=== PATIENT | male | born 1970 | race Caucasian/White ===

== ENCOUNTER 2025-03-08 11:04 | Emergency (ER) | payer OTHER, SELFPAY ==
[2025-03-08] VITALS (7 sets, daily range): BP systolic 130–137; BP diastolic 82–93; PULSE 74–98; RESP 15–18; TEMP 36.6; O2SAT 95–100; BMI 39.3
--- OUTSIDE RECORDS SUMMARY | 2025-03-08 11:06 | XMS_ITS | Clinical Summary ---
Author Organization [facility] Address [address] [place] [id number] Care Team Providers Care Channel Cementer Name Role Phone Erin Vanesa Simon MD Primary Care Provider [phone] Allergies Active Allergy Reactions Criticality Noted Date Comments Unlisted Allergen (Include Detail In Comments) Itching 09/11/2018 Tide laundry soap Medications albuterol HFA (PRO-AIR; VENTOLIN; PROVENTIL) 90 mcg/actuation inhalerIndications :COPD mixed type (HC) Inhale 2 Puffs by mouth every 4 hours if needed for Shortness Of Breath. 1 Each 11 4 Active amoxicillin 500 mg capsuleIndications :History of total left knee replacement take four pills one hour prior to dental work 4 Capsule 5 Active mirtazapine 7.5 mg tabletIndications: Major depressive disorder, recurrent, moderate (HC),Insomnia due to mental condition Take 1 Tablet (7.5 mg) by mouth at bedtime. if needed for sleep 90 Tablet 3 5 Active amLODIPine 5 mg tabletIndications: Essential hypertension Take 1 Tablet (5 mg) by mouth once daily. 90 Tablet 3 5 Active atorvastatin 40 mg tabletIndications: Hyperlipidemia, unspecified hyperlipidemia type Take 1 Tablet (40 mg) by mouth once daily. 90 Tablet 3 5 Active FLUoxetine 40 mg capsuleIndications :Major depressive disorder, recurrent, moderate (HC) Take 1 Capsule (40 mg) by mouth once daily. 90 Capsule 3 5 Active losartan 100 mg tabletIndications: Essential hypertension Take 1 Tablet (100 mg) by mouth once daily. 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/2021 Mixed hyperlipidemia 11/22/2020 Essential hypertension 11/22/2020 Gonarthrosis 09/11/2018 Chest tightness or pressure 01/02/2016 Obstructive sleep apnea 10/26/2015 Major depressive disorder, recurrent, moderate Encounters Date Type Department Care Team Description 03/01/2025 2:30 PM CDT Office Visit [facility] [place] [address] [place] [address] Bradley Anderson MD Sleep Consult 03/01/2025 Orders Only [facility] Scanner 1 scan: (1-Ord) JODI, COMPLIANCE REPORT, 03/01/2025 03/01/2025 Travel 12/22/2024 9:30 AM CDT Office Visit [facility] [address] [place] [phone] Suman Walsh-Brandon Harris MD Nose Problem (Snoring) 12/22/2024 Travel from Last 3 Months Immunizations Immunization Administration Dates Next Due COVID-19 vaccine (Thea-J& J) ANAT DELEON 02/17/2021 Hep B (Hepatitis B (Adult) Recombinant Adjuvanted) 03/15/2024 INFLUENZA, IIV3 PF (AGE >= 6 MO) 06/03/2024 Influenza A (H1N1), Inactiva joellen (Age >=3 Years) 07/22/2009 Influenza, IIV3 (Age 6-35 mos) 4,06/08/2013,06/11/2012,2010,06/27/2010 Influenza, IIV3 (Age >=3 years) 07/08/2009 Influenza, IIV4 06/05/2023,04/16/2020,06/17/2015 Influenza, IIV4 (=>6mos) MDV 06/10/2019,06/11/20 18,06/12/2017 Influenza, Injectable, Mdck, Quadrivalent, W/preservative 06/06/2022 Influenza,CCIIV4 PRESERV FREE 05/05/2021 Pneumococcal Conj 20-valent (Prevnar 20) 11/17/2024 Pneumococcal conj 13-Valent (Prevnar 13) 08/01/2016 Td (Age >=7 Years) 08/09/2021 Tdap 10/27/2010 Zoster (Shingrix-RZV, recombinant) 05/17/2021, Family History Medical History Relation Name Comments Diabetes Brother COPD Father Depression Mother Diabetes Mother Heart failure Mother Hypertension Mother Thyroid Disease Mother Relation Name Status Comments Brother Father Mother Social History Tobacco Use Types Packs/Day Years Used Date Smoking Tobacco: Former Cigarettes 2 25 0 10/26/1978 - 10/26/2003 Smokeless Tobacco: Former Quit: 10/26/2003 Tobacco Cessation:Counseling Given: Yes Alcohol Use Standard Drinks/Week Comments Not Currently 0 (1 standard drink = 0.6 oz pure alcohol) 10 times a year 5 or 6 beers at a time PHQ-2 Answer Date Recorded PHQ-2 TOTAL SCORE 0 11/17/2024 Social Connections Answer Date Recorded Do you often feel lonely or isolated from those around you? 0 11/17/2024 Alcohol Use Answer Date Recorded How often do you have a drink containing alcohol ? 1 09/22/2021 How many drinks containing a lcohol do you have on a typical day when you are drinking? 2 09/22/2021 How often do you have five or more drinks on one occasion? 1 09/22/2021 Financial Resource Strain Answer Date R ecorded Difficulty of Paying Living Expenses 3 11/17/2024 Difficulty of Paying Living Expenses Not on file 11/17/2024 Food Insecurity Answer Date Recorded Do you worry your food will run out before you are able to buy more? 1 11/17/2024 Transportation Needs Answer Date Record ed Does lack of transportation keep you from medica l appointments? 1 11/17/2024 Does lack of transportation keep you from work, meetings or getting things that you need? 1 11/17/2024 Housing Stability Answer Date Recorded What is your housing situation today? 1 11/17/2024 Utilities Answer Date Recorded Do you have trouble paying f or utilities (for example, heat, electricity, water, phone)? 1 11/17/2024 Education Answer Date Recorded What is the highest level of school you have completed or the highest degree you have received? 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 Not on file Not on file Obstetrics History Last Filed Vital Signs Vital Sign Reading Time Taken Comments Blood Pressure 117/77 03/01/2025 2:28 PM CDT Pulse 71 03/01/2025 2:28 PM CDT Temperature - - Respiratory Rate 14 11/14/2021 12:5 6 PM CDT Oxygen Saturation 100% 03/01/2025 2:28 PM CDT Inhaled Oxygen Concentration - - Weight 100.1 kg (220 lb 9.6 oz) 03/01/2025 2:28 PM CDT Height 164.5 cm (5' 4.75) 03/01/2025 2:28 PM CD T Body Mass Index 36.99 03/01/2025 2:28 PM CDT Plan of Treatment Upcoming Encounters Date Type Department Care Team (Late st Contact Info) Description 04/02/2025 3:00 PM CDT Office Visit [facility] [address] [place] [phone] Carlton Gutierrez MD [address] [place] [address] Health Maintenance Due Date Last Done Comments Hepatitis B series for 19+ ( 2 of 2 - CpG 2-dose series) 04/12/2024 03/15/2024 Influenza Vaccine (#1) 2025 4, 06/05/2023, 06/06/2022, Additional history exists Depression screening for age 12+ 11/17/2025 11/17/2024, 09/22/2021, 08/11/2021, Additional history exists BMI (ht and wt on same day) for age 18+ 03/01/2026 03/01/2025, 11/17/2024, 09/10/2023, Additional history exists Colonoscopy through age 75 11/20/2028 11/20/2018 Lipids for age 45-75 11/17/2029 11/17/2024, 09/10/2023, 08/09/2021 Tetanus booster 08/09/2031 08/09/2021, 10/27/2010 Zoster (shingles) series for age 50+ Completed 05/17/2021, 10/28/2019 HIV for age 15-65 Completed 09/10/2023 Hepatitis C screening for ag e 18-79 Completed 09/10/2023 COVID-19 vaccine series Completed 06/03/20 24, 06/05/2023, 02/17/2021 Pneumococcal series for age 50+ Completed , 08/01/2016 Procedures Procedure Name Priority Date/Time Associated Diagnosis Comments SCAN-DIAGNOSTIC REPORT 03/01/2025 12:00 AM CDT LIPID PANEL W REFLEX MEASURED LDL Routine 11/17/2024 4:37 PM CDT Routine general medical examination at a health care facility ANTI HIV 1/2 Routine 09/10/2023 11:42 AM CONTROL VALVE TECHNICIAN Screening for HIV (human immunodeficiency virus) ANTI HCV Routine 09/10/2023 11:42 AM CONTROL VALVE TECHNICIAN Need for hepatitis C screening test SCAN-COLONOSCOPY 11/20/2018 12:0 0 AM CDT from Last 3 Months or Most Recently Relevant to Health Maintenance Results * SCAN-DIAGNOSTIC REPORT (03/01/2025 12:00 AM CDT) us Scanner OTHER Final Result * LIPID PANEL W REFLEX MEASURED LDL (11/17/2024 4:37 PM CDT) CHOLESTEROL, TOTAL 169 <200 mg/dL [facility] HDL CHOLESTEROL 67 > OR = 40 mg/dL [facility] TRIGLYCERIDES 100 <150 mg/dL [facility] LDL-CHOLESTEROL 82 mg/dL (calc) [facility] Comment: Reference range: <100 Desirable range <100 mg/dL for primary prevention; <70 mg/dL for patients with CHD or diabetic patients with > or = 2 CHD risk factors. LDL-C is now calculated using the Augustine-Jack calculation, which is a validated novel method providing better accuracy than the Friedewald equation in the estimation of LDL-C. Augustine SS et al. CATHERINE. 2013;310(19): 6368-6037 (http://education.CO-Value/faq/IEP949) CHOL/HDLC RATIO 2.5 <5.0 (calc) [facility] NON HDL CHOLESTEROL 102 <130 mg/dL (calc) [facility] Comment: For patients with diabetes plus 1 major ASCVD risk factor, treating to a non-HDL-C goal of <100 mg/dL (LDL-C of <70 mg/dL) is considered a therapeutic option. Blood BLOOD SPECIMEN / Unknown 11/17/2024 4:37 PM CDT 11/17/2024 4:37 PM CDT Narrative [facility] - 11/18/2024 5:32 AM CDT MULTIPLE COLLECTION TIMES FOR SAME TEST TYPE. Vanesa Khan MD CHEMISTRY Final Resu lt [facility] [address] [place] [phone], [facility] [address] [place] [address] * ANTI HCV (09/10/2023 11:42 AM CONTROL VALVE TECHNICIAN) Pathologist [facility] HEPATITIS C ANTIBODY Non-Reacti ve Non-React george 09/11/2023 12:36 AM CONTROL VALVE TECHNICIAN [facility] Comment:Please note, per www .CDC.gov: If a patient is known to be at high risk of HCV infection, or is symptomatic, and the physician's suspicion of HCV infection is high, HCV RNA testing is often employed and is of diagnostic value, even after an initial negative anti-HCV test result. Blood BLOOD SPECIMEN / Unknown Venipuncture / Unknown 09/10/2023 11:42 AM CONTROL VALVE TECHNICIAN 09/10/2023 11:48 AM CONTROL VALVE TECHNICIAN Vanesa Khan MD SEND OUTS Final Resu lt Performing Organization Address [facility] Co de Phone Number [facility] [address] [address], [place] * ANTI HIV 1/2 [[id number]] (09/10/2023 11:42 AM CONTROL VALVE TECHNICIAN) HIV-1/HIV-2 SCREEN Non-Reacti ve Non-Reacti ve 09/11/2023 1:34 AM CONTROL VALVE TECHNICIAN [facility] Comment:HIV-1 p24 and HIV-1/ HIV-2 Ab Not Detected. Blood BLOOD SPECIMEN / Unknown Venipuncture / Unknown 09/10/2023 11:42 AM CONTROL VALVE TECHNICIAN 09/10/2023 11:48 AM CONTROL VALVE TECHNICIAN Vanesa Khan MD SEND OUTS Final Resu lt Performing Organization Address [facility] de Phone Number [facility] [address] [address], [place] * SCAN-COLONOSCOPY (11/20/2018 12:00 AM CDT) us Scanner OTHER Final Result from Last 3 Months or Most Recently Relevant to Health Maintenance Insurance ARIEL CABAN [id number] Care Teams Channel Cementer Relationship Specialty [place] [address] [place] [address] PCP - General Family Practice 01/02/16
--- NOTE | 2025-03-08 13:27 | ED.GENADULT ---
HPI - General Adult General Date Seen: 03/08/25 Chief complaint: Syncope/Fainted Stated complaint: Syncopal Time Seen by Provider: 03/08/25 12:51 History of Present Illness HPI narrative: Patient is a 54-year-old man here for evaluation of syncope. 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 He says he was sitting at a desk, got up and walked across the room then felt lightheaded. Next thing he knew he woke up on the ground. He denies any antecedent headache, chest pain, difficulty breathing, palpitations, abdominal or back pain. No reported seizure history. When he woke up he felt somewhat lightheaded but was otherwise asymptomatic. No tongue laceration loss of bowel or bladder control. He did have a few fainting episodes about a month or month and half ago in the setting of significant GI bug where he says things were ?coming out of both ends, he is not sure if he tried to get up off the toilet or what happened but he did have a couple of fainting episodes around that time. He denies any cardiac history. There is no family history of sudden cardiac . He does have a history of hypertension. He has a remote history of tobacco use, quit 20 years ago. He denies other substances. Related Data Allergies Allergy/AdvReac Type Severity Reaction Status Date / Time No Known Drug Allergies Allergy Verified 03/08/25 11:19 Review of Systems Status of ROS: Reports: 10 or more systems reviewed and unremarkable except as noted in History and below [facility] Social History Smoking Status: Former smoker What tobacco products do you use: cigarettes Smoking packs per day: 3 Smoking cigarettes per day: 60.0 Years smoked: 15 Smoking pack-years: 45.00 Smoking quit date/years: >15 years ago Second hand tobacco smoke exposure: No How often do you have a drink containing alcohol: 2-3 times a week How many standard drinks containing alcohol do you have on a typical day: 3 or 4 AUDIT-C Alcohol total score: 4 Non-prescribed substance use: denies use service: No Exam Narrative: Exam Narrative: Vital signs reviewed In general, alert, nontoxic med age male. Head: Normocephalic, atraumatic. Eyes: Sclera clear. Pupils equal and reactive. ENT: Mucous membranes moist. Neck: Supple without adenopathy. Heart: Regular rate and rhythm without murmur. Lungs: Clear. No increased work of breathing, crackles or wheezes. Abdomen: Soft, nontender to palpation. Extremities: Well perfused, pulses intact. No significant edema. Neurologic: Alert, conversant. Speech fluent, face symmetric. Moves all extremities equally. Skin: Warm, dry well perfused. Affect: Normal. Const: Vital Signs, click to edit/add: Vital Signs - 24 hr 03/08/25 11:10 03/08/25 13:06 03/08/25 13:07 Temperature 97.8 F Pulse Rate 74 87 Pulse Rate [Right Radial] 91 Respiratory Rate 16 15 Blood Pressure 134/90 H Blood Pressure [Ri ght Upper Arm] 130/82 Pulse Oximetry 97 99 95 Oxygen Delivery Me thod Room Air 03/08/25 13:15 03/08/25 13:22 03/08/25 13:30 Temperature Pulse Rate 98 Pulse Rate [Right Radial] Respiratory Rate 15 Blood Pressure Blood Pressure [Ri ght Upper Arm] Pulse Oximetry 98 100 Oxygen Delivery Me thod 03/08/25 14:39 Temperature Pulse Rate Pulse Rate [Right Radial] 78 Respiratory Rate 18 Blood Pressure Blood Pressure [Ri ght Upper Arm] 137/93 H Pulse Oximetry Oxygen Delivery Me thod Course Course ED Course: Patient had an EKG in triage. I reviewed this, this shows a sinus rhythm at a ventricular rate of 79. No acute ST segment changes. Corrected QT is 438 milliseconds, normal LA. He does not have any red flags to suggest he needs advanced imaging or admission to the hospital. I do think it is worthwhile to do routine labs rule out anemia, metabolic derangement, significant dehydration etcetera. At this time he is feeling well. If labs are normal, discussed with him I would suggest discharge home and primary care follow-up. Labs are most notable for hemoglobin of 9.5. Baseline on known. In talking with him, he does not report any black or bloody stools. He has had a colonoscopy in about the last 5 years which he says was unremarkable. Overall, I do not think the hemoglobin is independently responsible for the syncope, though it may have been a contributor. I have discussed this finding with him, reviewed that it does need to be evaluated further as an outpatient. It is microcytic, may be related to iron deficiency but needs further evaluation. Otherwise, he is feeling well. Vital signs remain unremarkable. He is comfortable with discharge home. I have asked him to return for any severe worsening symptoms or recurrent syncope, otherwise primary care follow-up in the next 1-2 weeks. Vital Signs Vital signs: Initial Vital Signs Temperature 97.8 F 03/08/25 11:10 Temperature Source Temporal Artery Scan 03/08/25 11:10 Pulse Rate 91 03/08/25 11:10 Pulse Rhythm Regular 03/08/25 11:10 Respiratory Rate 16 03/08/25 11:10 Blood Pressure 130/82 03/08/25 11:10 Blood Pressure Mean 98 03/08/25 11:10 Pulse Oximetry 97 03/08/25 11:10 Oxygen Delivery Method Room Air 03/08/25 11:10 Vital Signs Temperature 97.8 F 03/08/25 11:10 Pulse Rate 91 03/08/25 11:10 Respiratory Rate 16 03/08/25 11:10 Blood Pressure 130/82 03/08/25 11:10 Pulse Oximetry 97 03/08/25 11:10 Oxygen Delivery Method Room Air 03/08/25 11:10 Temperature 97.8 F 03/08/25 11:10 Pulse Rate 78 03/08/25 14:39 Respiratory Rate 18 03/08/25 14:39 Blood Pressure 137/93 H 03/08/25 14:39 Pulse Oximetry 100 03/08/25 13:22 Oxygen Delivery Method Room Air 03/08/25 11:10 Medical Decision Making Lab Data Lab results reviewed: Yes I reviewed the patient's lab results Labs: Lab Results 03/08/25 Range/Units 13:30 WBC 9.55 (4.50-11.00) K/uL RBC 3.89 L (4.30-5.90) m/uL Hgb 9.5 L (13.5-17.5) gm/dL Hct 32.7 L (37.0-53.0) % MCV 84 (80-100) fL MCH 24 L (26-34) pg MCHC 29 L (32-36) gm/dL RDW Coeff of Felicitas 19.7 H (11.5-15.5) % Plt Count 384 (140-440) K/uL Neut % (Auto) 69.3 (42.0-72.0) % Lymph % (Auto) 18.8 L (20-44) % Young % (Auto) 7.9 (0.0-11.0) % Eos % (Auto) 2.6 (0.0-7.0) % Baso % (Auto) 1.2 (0.0-3.0) % Neut # (Auto) 6.62 (1.7-7.0) K/uL Lymph # (Auto) 1.80 (0.90-2.90) K/uL Young # (Auto) 0.80 (0.00-0.90) K/UL Eos # (Auto) 0.25 (0.00-0.50) K/uL Baso # (Auto) 0.11 (0.00-0.30) K/uL Abs Immat Gran (auto) 0.02 (0.00-0.30) K/uL Imm/Tot Granulo (auto) 0.2 % Sodium 138 (135-149) mmol/L Potassium 4.6 (3.6-5.1) mmol/L Chloride 105 (96-114) mmol/L Carbon Dioxide 25 (20-32) mmol/L Anion Gap 8 (7-15) mEq/L BUN 29 (7-30) mg/dL Creatinine 1.2 (0.5-1.5) mg/dL Estimated Creat Clear 55.32 Estimated GFR 71 ml/min Glucose 100 (60-115) mg/dL Calcium 9.2 (8.4-10.6) mg/dL Troponin I < 0.01 (0.01-0.04) ng/mL Discharge Plan Discharge Clinical Impression: Syncope, Anemia Patient Disposition: Home, Self-Care Condition: Stable Instructions: Syncope (ED), Anemia (ED) Additional Instructions: Your evaluation today shows that your anemic. Your hemoglobin is 9.5. The cause of this is not clear today, and this should be further evaluated through your primary care doctor. I do not think that this is low enough to have directly caused him to pass out. Cause of your fainting spell is not entirely clear, which is not uncommon. Your EKG is normal. If you have further fainting spells I would recommend coming back to the ER. Otherwise, follow up with primary care in the next week or 2 for further evaluation. If you have black or bloody stools, chest pain, significant shortness of breath, fevers etcetera, return any time. Follow Up/Referrals: Provider,Not a Local [Primary Care Provider, Family Practice] Stand Alone Forms: Noquo Info Instructions
[2025-03-08 13:37] LABS: Hematocrit 32.7 % (37.0-53.0); Hemoglobin* 9.5 gm/dL (13.5-17.5); Immature Granulocytes Abs Auto 0.02 K/uL (0.00-0.30); Immature Granulocytes Pct Auto 0.2 %; Lymphocytes Absolute Auto 1.80 K/uL (0.90-2.90); Mean Corpuscular HGB Conc 29 gm/dL (32-36); Mean Corpuscular Hemoglobin 24 pg (26-34); Mean Corpuscular Volume 84 fL (80-100); RDW Coefficient of Variation % 19.7 % (11.5-15.5); Red Blood Count 3.89 m/uL (4.30-5.90); White Blood Count* 9.55 K/uL (4.50-11.00)
[2025-03-08 13:42] LABS: Slide Review Reflex No
[2025-03-08 13:49] LABS: Chloride* 105 mmol/L (96-114); Potassium* 4.6 mmol/L (3.6-5.1); Sodium* 138 mmol/L (135-149)
[2025-03-08 13:52] LABS: Blood Urea Nitrogen* 29 mg/dL (7-30); Creatinine* 1.2 mg/dL (0.5-1.5); Est. Creatinine Clearance* 55.32; Estimated Glomerular Filt Rate 71 ml/min
[2025-03-08 13:53] LABS: Anion Gap 8 mEq/L (7-15); Calcium* 9.2 mg/dL (8.4-10.6); Carbon Dioxide* 25 mmol/L (20-32); Glucose* 100 mg/dL (60-115)
== END 2025-03-08 14:41 | disposition home or self-care (01) ==
PROVIDERS: Emergency Provider Emergency Medicine
DX: R55 Syncope and collapse (principal); D64.9 Anemia, unspecified
CPT/HCPCS: 36415; 80048; 84484; 85025; 93005; 94761; 99284